=== PATIENT | male | born 1990 | race African-American/Black ===

== ENCOUNTER 2019-03-24 07:50 | Emergency (ER) | payer MEDICAID ==
[~2019-03-24] VITALS: Ht 167.6 cm; Wt 62.3 kg
[2019-03-24 07:51] VITALS: BP 119/68
== END 2019-03-24 09:42 | disposition home or self-care (01) ==
LOC: M ED 07:50
DX: Z13.9 Encounter for screening, unspecified (principal)

== ENCOUNTER → 2019-03-25 | Outpatient (CLI) | payer MEDICAID | LOC: M OUTALCOH 07:58 | PROVIDERS: ATTEND Psychiatry & Neurology Psychiatry | DX: Z03.89 Encounter for observation for other suspected diseases and conditions ruled out (principal) ==

== ENCOUNTER 2019-04-02 09:10 | Outpatient (RCR) | payer MEDICAID | END 2019-04-06 | LOC: M OUTALCOH 09:10 | PROVIDERS: ATTEND Psychiatry & Neurology Psychiatry | DX: Z03.89 Encounter for observation for other suspected diseases and conditions ruled out (principal) ==